=== PATIENT | female | born 1975 | race Two or more races ===

== ENCOUNTER 2025-02-07 17:00 | Emergency (ER) | payer MEDICAID, SELFPAY ==
[2025-02-07 17:22] VITALS: BP 111/71; PULSE 81; RESP 16; TEMP 37.1; O2SAT 96
--- NOTE | 2025-02-07 19:10 | XR_ITS ---
Examination: CT abdomen and pelvis without contrast. Coronal 3-D reconstructions. Sagittal 2-D reconstructions. Date and time of exam:January 30, 2025 2113 hrs. Comparison: 02/09/2012 Indications: Nausea vomiting diarrhea beginning 2 weeks ago CTDI: vol (mGy): 10.1 DLP: (mGycm): 514 Technique: Axial images of the abdomen have been obtained, 3 mm slice thickness Intravenous contrast material has not been administered. Low dose protocols were performed. One or more of the following dose reduction techniques were used; automated exposure control, adjustment of the mA and/or KV according to patient size, use of iterative reconstruction technique. Findings: No focal liver or splenic lesions Absent gallbladder No pancreatic mass 8 mm lower pole right renal calculus No hydronephrosis or ureteral calculi Multiple lymph nodes in the right lower mesentery Normal appendix No bowel obstruction No bladder mass Enlarged fundus of uterus Impression: 8 mm lower pole right renal calculus No hydronephrosis or ureteral calculi Normal appendix Enlarged fundus of uterus, recommend pelvic sonography follow-up
[2025-02-07 20:06] LABS: Collection Type, Urine Clean Catch
[2025-02-07 20:08] LABS: Basophils # (Auto) 0.1 Thou/mm3 (0.0-0.2); Basophils % (Auto) 1 % (0-2.5); Eosinophils # (Auto) 0.2 Thou/mm3 (0.0-0.5); Eosinophils % (Auto) 2 % (0-10); Hematocrit 39.7 % (36.0-46.0); Hemoglobin 13.1 g/dL (12.0-16.0); Immature Granulocytes Auto 0.04 Thou/mm3 (0.00-0.00); Lymphocytes # (Auto) 3.7 Thou/mm3 (1.0-4.8); Lymphocytes % (Auto) 31 % (10-50); Mean Corpuscular HGB Conc 33.0 g/dl (31.0-37.0); Mean Corpuscular Hemoglobin 28.9 pg (25.0-35.0); Mean Corpuscular Volume 88 fL (80-100); Monocytes # (Auto) 0.7 Thou/mm3 (0.0-0.8); Monocytes % (Auto) 5 % (0-12); Neutrophils # (Auto) 7.3 Thou/mm3 (1.8-7.7); Neutrophils % (Auto) 61 % (37-80); Nucleated Red Blood Cell # 0.00 Thou/mm3 (0.00-0.00); Nucleated Red Blood Cell % 0 /100 WBC (0); Platelet Count 340 Thou/mm3 (140-440); RDW Standard Deviation 42.1 fL (36.4-46.3); Red Blood Count 4.53 Miln/mm3 (4.00-5.20); White Blood Count 12.0 Thou/mm3 (3.6-11.0)
[2025-02-07 20:24] LABS: Bacteria,Urine Rare; Bilirubin,Urine Negative (Negative); Blood,Urine 1+ (Negative); Clarity,Urine Clear (Clear/Hazy); Color,Urine Yellow (Lt Yel-Yel); Glucose, Urine Negative (Negative); Ketones,Urine Negative (Negative); Leukocyte Esterase,Urine Positive (Negative); Nitrite,Urine Negative (Negative); PH,Urine 5.5 (5.0-7.0); Protein,Urine Trace (Neg - Trace); RBC,Urine 6 /hpf (0-3); Specific Gravity,Urine 1.027 (1.001-1.035); Squamous Epithelial Cell,Urine 9 /hpf (0-5); Urobilinogen,Urine Negative mg/dL (0.0-1.0); WBC,Urine 12 /hpf (0-5)
[2025-02-07 20:25] LABS: HCG Qualitative,Urine Negative
[2025-02-07 20:35] LABS: Alanine Aminotransferase 12 U/L (10-49); Albumin, Serum 4.6 gm/dL (3.5-5.0); Albumin/Globulin Ratio 1.6 (1.2-2.2); Alkaline Phosphatase 70 U/L (46-116); Anion Gap 6 (7-16); Aspartate Amino Transferase 20 U/L (0-34); BUN/Creatinine Ratio 9 Ratio (12-20); Bilirubin,Total 0.3 mg/dL (0.3-1.2); Blood Urea Nitrogen 9 mg/dL (9-23); Calcium 9.4 mg/dL (8.3-10.6); Calcium (Corrected) 9.4 mg/dL (8.5-10.1); Carbon Dioxide 28.3 mMol/L (20.0-31.0); Chloride 107 mMol/L (98-107); Creatinine (Component) 1.0 mg/dL (0.6-1.3); Estimated Creatinine Clearance 70.7 mL/min (>60); Globulin 2.9 gm/dL (2.3-3.5); Glucose 79 mg/dL (74-106); Osmolality,Calculated 278 (275-295); Potassium 3.9 mMol/L (3.4-5.1); Sodium 141 mMol/L (136-145); Total Protein 7.5 gm/dL (5.7-8.2); eGFR > 60 See Note
[2025-02-07 21:00] LABS: Lipase 33 U/L (12-53)
--- NOTE | 2025-02-07 22:36 | XR_ITS ---
Examination: Pelvic ultrasound, transabdominal, complete Technique: Transabdominal ultrasound of the pelvis performed using grayscale imaging Date and time of exam: July 02, 2024 10:56 PM Indications: Abdominal pain and diarrhea beginning 2 weeks ago Findings: Uterus 9.3 cm Uterine fundal area of fibroid degeneration 4.2 x 4.1 cm Endometrial stripe 0.8 cm Ovaries obscured by bowel gas Impression: Uterine fundal area of fibroid degeneration 4.2 x 4.1 x 3.7 cm
--- NOTE | 2025-02-08 00:18 | PD.EDABDPN ---
ED Abdominal Pain RME/HPI General Chief Complaint: Abdominal Pain Stated complaint: ABD PAIN, N/V/ X 2 WKS Time seen by provider: 02/07/25 18:47 Arrival date/time: 02/07/25 17:00 This is a case of 49-year-old female with history of uterine fibroid came in in the emergency room due to both lower abdominal pain radiating to both flanks for 1 month worsening of the symptoms this patient decided to sought consult here in the emergency room associated symptoms nausea vomiting but no constipation no diarrhea no fever no chills Limitations: no limitations Related Data Previous Rx's ?Medication ?Instructions ?Recorded cephalexin 500 mg capsule 500 mg PO QID #40 caps 02/08/25 hydrocodone 5 mg-acetaminophen 325 1 tab PO Q6H PRN pain #12 tabs 02/08/25 mg tablet ondansetron 4 mg disintegrating 4 mg PO Q8H #20 tabs 02/08/25 tablet tamsulosin 0.4 mg capsule (Flomax) 0.4 mg PO QDAY #7 caps 02/08/25 Allergies Allergy/AdvReac Type Severity Reaction Status Date / Time No Known Allergies Allergy Verified 02/07/25 17:03 Review of Systems Review of Systems Systems Reviewed: All systems reviewed, normal except as documented Constitutional Constitutional: Reports system reviewed and no additional complaints, except as documented and Reports as per HPI ENT Ears, Nose, Mouth, and Throat: Denies dysphagia and Denies odynophagia Cardiovascular Cardiovascular: Reports system reviewed and no additional complaints, except as documented and Reports as per HPI Respiratory Respiratory: Reports system reviewed and no additional complaints, except as documented and Reports as per HPI Gastrointestinal Gastrointestinal: Reports system reviewed and no additional complaints, except as documented, Reports as per HPI, Reports abdominal pain, Denies belching, Denies bloating, Denies change in bowel habits, Denies change in stool character, Denies coffee ground emesis, Denies constipation, Denies cramping, Denies diarrhea, Denies dyspepsia, Denies dysphagia, Denies early satiety, Denies excessive flatus, Denies hematemesis, Denies hematochezia, Denies loose stools, Denies melena, Reports nausea, Denies odynophagia, Denies tenesmus and Reports vomiting Genitourinary Genitourinary: Reports system reviewed and no additional complaints, except as documented, Reports as per HPI, Denies abnormal menses, Denies abnormal vaginal bleeding, Denies amenorrhea, Denies change in libido, Denies difficulty conceiving, Denies difficulty voiding, Denies dysmenorrhea, Denies dyspareunia, Denies dysuria, Denies flank pain, Denies genital lesions, Denies hematuria, Denies hot flashes, Denies light periods, Denies menorrhagia, Denies nipple discharge, Denies urinary frequency, Denies urinary incontinence, Denies urinary hesitancy, Denies urinary urgency, Denies vaginal discharge, Denies vaginal dryness, Denies vaginal odor and Denies vaginal pruritus Musculoskeletal Musculoskeletal: Reports system reviewed and no additional complaints, except as documented and Reports as per HPI Integumentary/Breasts Skin/Breast: Denies nipple discharge Neurologic Neurologic: Reports system reviewed and no additional complaints, except as documented and Reports as per HPI Psychiatric Psychiatric: Denies change in libido Endocrine Endocrine: Denies change in libido Past Medical History Social History SMOKING STATUS: Current every day smoker ED Exam General Limitations: Present no limitations General appearance: Present alert, in no apparent distress and other (Patient is awake alert oriented not in distress nontoxic looking well-hydrated well-nourished) Head Head exam: Present atraumatic, normocephalic and normal inspection Eye Eye exam: Present normal appearance, PERRL and EOMI ENT ENT exam: Present normal exam, normal oropharynx and mucous membranes moist Neck Neck exam: Present normal inspection, full ROM and trachea midline; Absent tenderness, meningismus, lymphadenopathy or thyromegaly Chest Chest inspection: Present normal inspection and symmetric chest wall rise; Absent tenderness Respiratory Respiratory exam: Present normal lung sounds bilaterally; Absent respiratory distress, wheezes, stridor, accessory muscle use or prolonged expiratory phase Cardiovascular Cardiovascular exam: Present regular rate, normal rhythm and normal heart sounds; Absent bradycardia, tachycardia, irregular rhythm, systolic murmur or diastolic murmur Abdominal Exam Abdominal exam: Present soft, tenderness (Mild tenderness on suprapubic area no CVA tenderness bladder is not distended not tender) and normal bowel sounds; Absent distention, guarding, rebound, rigidity, diminished bowel sounds, hyperactive bowel sounds, hypoactive bowel sounds, organomegaly, trauma, psoas sign, obturator sign, Wilson's sign, Rovsing's sign, tenderness at McBurney's Point, ascites or hernia Extremities Exam Extremities exam: Present normal inspection and full ROM Back Exam Back exam: Present normal inspection and full ROM Neurological Exam Neurological exam: Present alert, oriented X3, CN II-XII intact, normal gait and reflexes normal; Absent motor sensory deficit Psychiatric Psychiatric exam: Present normal affect and normal mood Skin Skin exam: Present warm, dry, intact and normal color Course Quality Measures none Orders Category Date Time Status CT abdomen pelvis wo con Stat Exams 02/07/25 19:10 Completed US pelvic complete Stat Exams 02/07/25 22:36 Completed CBC Stat Lab 02/07/25 19:29 Completed Comprehensive Metabolic Panel Stat Lab 02/07/25 19:29 Completed HCG Qualitative,Urine Stat Lab 02/07/25 19:57 Completed Lipase Stat Lab 02/07/25 19:29 Completed Urinalysis Stat Lab 02/07/25 19:57 Completed HYDROcodone*/APAP 5/325 [[place] 5/325] Med 02/08/25 00:11 Discontinued 1 tab PO X1 ONE Ketorolac Inj [Toradol Inj] Med 02/08/25 00:11 Discontinued 30 mg IM X1 ONE Tamsulosin HCl [Flomax] Med 02/08/25 00:11 Once 0.4 mg PO X1 ONE cephALEXin [Keflex] Med 02/08/25 00:11 Discontinued 1,000 mg PO X1 ONE Vital Signs Vital signs: Vital Signs Temperature 98.7 F 02/07/25 17:22 Pulse Rate 81 02/07/25 17:22 Respiratory Rate 16 02/07/25 17:22 Blood Pressure 111/71 02/07/25 17:22 Pulse Oximetry (%) 96 02/07/25 17:22 Oxygen Delivery Method Room Air 02/07/25 17:22 Patient oxygen saturation is 96% in room air normal Abdominal Pain MDM MDM Narrative MDM Narrative:: This is a case of 49-year-old female with history of uterine fibroid came in in the emergency room due to both lower abdominal pain radiating to both flanks for 1 month worsening of the symptoms this patient decided to sought consult here in the emergency room associated symptoms nausea vomiting but no constipation no diarrhea no fever no chills physical examination patient is awake alert oriented not in distress nontoxic looking well-hydrated well-nourished excellent skin turgor abdominal exam noted mild tenderness in suprapubic area no guarding no rebound no rigidity negative psoas negative straight or negative of 16 (no Wilson sign negative CVA tenderness bladder is not distended not tender the rest of the physical examination and neurological exam is normal and unremarkable blood test showed leukocytosis of 12,000 no anemia kidney and liver function is normal no electrolyte imbalance lipase is normal urinalysis suggestive of urinary tract infection CT scan of the abdomen showed nephrolithiasis but no hydronephrosis ultrasound of the pelvic showed uterine fibroid patient was given Toradol [place] here in the emergency room and started with cephalexin for urinary tract infection and Flomax for kidney stone patient will follow-up with PCP in 2 days for reevaluation and to be referred to urologist for kidney stone and 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 Patient verbalized no further complains explained diagnosis and answered patient question. Patient is comfortable with the proposed management plan including the need to follow up with his/her primary care physician and any specialist if applicable Discussed patient for any urgent condition or worsening sx, He/She needed to go to emergency room immediately or call 911. Patient acknowledge the responsibility to follow up as instructed and to monitor her/his symptoms. For any persistence of the symptoms for more than 3-5 days return precaution advised. Discussed the result of the test and was given printed discharge instruction Patient data External records reviewed:: [facility] previous records Clinical information provided by:: patient Social determinants that could affect healthcare access:: none Patient has the following chronic illnesses:: None How is presenting disease/condition affected by chronic disease/condition?: no chronic disease Evaluation data The following diagnostics were reviewed and interpreted by me:: lab results and radiology exam(s) Lab and/or radiology exams considered but not ordered:: Reviewed Interpretation Summary: Reviewed Medications / Prescriptions Medications or Prescriptions considered but not ordered:: Given Medication administrations:: Medication Administration History Tamsulosin HCl (Tamsulosin Hcl 0.4 Mg Capsule) 0.4 mg PO X1 ONE Stop: 02/08/25 00:12 Discontinued Medications Hydrocodone Bitart/Acetaminophen (Hydrocodone/Apap 5/325 Tablet) 1 tab PO X1 ONE Stop: 02/08/25 00:12 Cephalexin HCl (Cephalexin 250 Mg Capsule) 1,000 mg PO X1 ONE Stop: 02/08/25 00:12 Ketorolac Tromethamine (Ketorolac Inj 60 Mg/2 Ml Vial) 30 mg IM X1 ONE Stop: 02/08/25 00:12 Given Consultations Consultation(s) initiated? (list below): No Diagnosis Differential diagnosis abdominal pain: abdominal pain, acute appendicitis, calculus of kidney, constipation and diverticulitis Most likely diagnosis given after review of the tests above:: Nephrolithiasis uterine fibroid urinary tract infection Admission Indicated Admission indicated?: not indicated Explain why admission is indicated or not indicated:: Not indicated Admission Request Was there a request for admission?: No Admission Attestation Admission request attestation: Not indicated Disposition Plan Disposition Plan: Discharge Discharge Attestation Discharge Attestation: The patient and all family members were given an opportunity to ask questions and understood the discharge instructions. Discharge instructions specifically effects, indications for sooner follow up or return to the emergency department, and the expected course of current diagnosis. Patient condition: Stable Discharge Plan Plan Patient Disposition: HOME (Self Care) Patient condition on transfer: Stable Prescriptions/Referrals Prescriptions/Med Rec: New cephalexin 500 mg capsule 500 mg PO QID Qty: 40 0RF hydrocodone-acetaminophen 5-325 mg tablet 1 tab PO Q6H MDD max 4 tabs per day PRN (Reason: pain) Qty: 12 0RF ondansetron 4 mg tablet,disintegrating 4 mg PO Q8H Qty: 20 0RF tamsulosin [Flomax] 0.4 mg capsule 0.4 mg PO QDAY Qty: 7 0RF Referrals: Pedro Krause MD [Primary Care Provider, Family Practice] - In 1 week Problem List Clinical Impression: Abdominal pain, Nephrolithiasis, Fibroid, uterine, Urinary tract infection Patient/Caregiver Discharge Instructions Education Materials: Abdominal Pain, Urinary Tract Infections in Women, Kidney Stones Your Evaluation, ED Uterine Fibroids Additional Instructions: Follow-up with your primary care physician in 2 days for reevaluation and to be referred to urologist for further evaluation and treatment of kidney stone and to be referred to OB security systems sales representative for further evaluation and treatment of uterine fibroid worsening symptoms recurrence persistent or any emergent concern call 911 or go to the nearest emergency room take your medication as directed finish the course of antibiotic increase water intake keep hydrated is advised Print Language: Estonian Stand Alone Forms: Marya Award Info., Patient Portal Info Letter PA/HEAD INSPECTOR AND CENTER MARKER Supervising Physician PA/HEAD INSPECTOR AND CENTER MARKER Supervising Physician: Dr. Quentin Tucker
[2025-02-08] MEDS: KETOROLAC INJ 60 MG/2 ML VIAL 30 MG IM (00:39)
[2025-02-08] MEDS: TAMSULOSIN HCL 0.4 MG CAPSULE PO (00:39)
[2025-02-08] MEDS: HYDROcodone/APAP 5/325 TABLET 1 TAB PO (00:40)
== END 2025-02-08 01:04 | disposition home or self-care (01) ==
PROVIDERS: Nurse Practitioner Family; Emergency Provider Emergency Medicine; PCP Family Medicine
DX: D25.9 Leiomyoma of uterus, unspecified (principal); N39.0 Urinary tract infection, site not specified; N20.0 Calculus of kidney
CPT/HCPCS: 36415; 74176; 76856; 80053; 81001; 81025; 83690; 85025; 96372; 99283; J1885; A9270

== ENCOUNTER → 2025-03-22 | Outpatient (CLI) | payer MEDICAID, SELFPAY ==
--- NOTE | 2025-03-22 14:31 | XR_ITS ---
Examination: Abdomen AP single view Technique: AP portable supine abdomen, single view Exam date and time: March 22, 2025, 1703 hours INDICATIONS: Abdominal pain right flank pain for months. FINDINGS: 7 mm calculus lower pole right kidney No definite ureteral calculi Moderate stool throughout the colon IMPRESSION: 7 mm calculus lower pole right kidney
== END | disposition home or self-care (01) ==
PROVIDERS: Referring Provider Surgery; Visit Provider Surgery
DX: N20.0 Calculus of kidney (principal)
CPT/HCPCS: 74018

== ENCOUNTER 2025-04-23 08:15 | Day surgery (SDC) | payer MEDICAID, SELFPAY ==
[2025-04-20 10:50] VITALS: BMI 27.9
[2025-04-20 12:00] LABS: Basophils # (Auto) 0.1 Thou/mm3 (0.0-0.2); Basophils % (Auto) 1 % (0-2.5); Eosinophils # (Auto) 0.2 Thou/mm3 (0.0-0.5); Eosinophils % (Auto) 3 % (0-10); Hematocrit 40.3 % (36.0-46.0); Hemoglobin 13.5 g/dL (12.0-16.0); Immature Granulocytes Auto 0.02 Thou/mm3 (0.00-0.00); Lymphocytes # (Auto) 2.6 Thou/mm3 (1.0-4.8); Lymphocytes % (Auto) 32 % (10-50); Mean Corpuscular HGB Conc 33.5 g/dl (31.0-37.0); Mean Corpuscular Hemoglobin 29.1 pg (25.0-35.0); Mean Corpuscular Volume 87 fL (80-100); Monocytes # (Auto) 0.5 Thou/mm3 (0.0-0.8); Monocytes % (Auto) 7 % (0-12); Neutrophils # (Auto) 4.6 Thou/mm3 (1.8-7.7); Neutrophils % (Auto) 57 % (37-80); Nucleated Red Blood Cell # 0.00 Thou/mm3 (0.00-0.00); Nucleated Red Blood Cell % 0 /100 WBC (0); Platelet Count 310 Thou/mm3 (140-440); RDW Standard Deviation 40.4 fL (36.4-46.3); Red Blood Count 4.64 Miln/mm3 (4.00-5.20); White Blood Count 8.1 Thou/mm3 (3.6-11.0)
[2025-04-20 12:26] LABS: Anion Gap 9 (7-16); BUN/Creatinine Ratio 11 Ratio (12-20); Blood Urea Nitrogen 11 mg/dL (9-23); Calcium 9.4 mg/dL (8.3-10.6); Carbon Dioxide 27.5 mMol/L (20.0-31.0); Chloride 107 mMol/L (98-107); Creatinine (Component) 1.0 mg/dL (0.6-1.3); Estimated Creatinine Clearance 68.7 mL/min (>60); Glucose 111 mg/dL (74-106); Osmolality,Calculated 285 (275-295); Potassium 4.1 mMol/L (3.4-5.1); Sodium 143 mMol/L (136-145); eGFR > 60 See Note
--- NOTE | 2025-04-22 13:26 | ESHP_ITS ---
RE: RODRIGO JACINTO : 1975 DATE OF ADMISSION: 04/22/2025 HISTORY OF PRESENT ILLNESS: A 50 year old female with a right renal stone. Scheduled for ESWL for the right renal stone. She has a 8.8 mm stone on the right kidney. Patient had pain. She was to the emergency room before. PREVIOUS SURGERY: Cholecystectomy, 3 C-sections. Patient has 6 children. PAST MEDICAL HISTORY: No history of diabetes mellitus. No history of hypertension. ALLERGIES: NONE KNOWN. MEDICATIONS: None. PHYSICAL EXAMINATION: Clinical examination reveals: HEENT: Normal. NECK: Supple. LUNGS: Clear. HEART: Heart sounds are normal. ABDOMEN: Soft without any organomegaly. No guarding. No rigidity. EXTREMITIES: Normal. IMPRESSION: Right renal stone 8 mm in size. PLAN: Right ESWL. Planned procedure, risks and complications have been discussed with the patient. Patient has understood them and agreed to proceed. DT: 12:57:38 TT: 13:25:00 Ref: [id number] - TID: [id number]
[2025-04-23] VITALS (8 sets, daily range): BP systolic 109–150; BP diastolic 49–87; PULSE 57–74; RESP 12–18; TEMP 36.7–36.8; O2SAT 98–100; BMI 28.2
--- NOTE | 2025-04-23 06:00 | XR_ITS ---
Examination: Abdomen AP single view Technique: AP portable supine abdomen, single view Exam date and time: April 23, 2025, 0937 hours INDICATIONS: Right flank pain months, kidney stones FINDINGS: Suspicious for 7 mm right renal calculus Abundant stool in the colon overlies the kidneys No free air IMPRESSION: Suspicious for 7 mm right renal calculus
--- NOTE | 2025-04-23 09:24 | SUR.PREOP ---
Patient expressed gratitude for prayer before their procedure.
[2025-04-23 09:29] LABS: Collection Type, Urine Clean Catch
[2025-04-23 09:44] LABS: Bilirubin,Urine Negative (Negative); Blood,Urine 2+ (Negative); Color,Urine Yellow (Lt Yel-Yel); Glucose, Urine Negative (Negative); Ketones,Urine Negative (Negative); Leukocyte Esterase,Urine Negative (Negative); Nitrite,Urine Negative (Negative); PH,Urine 5.5 (5.0-7.0); Protein,Urine Trace (Neg - Trace); RBC,Urine 19 /hpf (0-3); Specific Gravity,Urine 1.029 (1.001-1.035); Squamous Epithelial Cell,Urine 8 /hpf (0-5); Urobilinogen,Urine Negative mg/dL (0.0-1.0); WBC,Urine 4 /hpf (0-5)
[2025-04-23 10:06] LABS: Clarity,Urine Hazy (Clear/Hazy)
--- NOTE | 2025-04-23 10:39 | EKG_ITS ---
[facility] Test Date: 2025-04-23 Pat Name: RODRIGO JACINTO Department: Room: - Gender: Female Inflated Pad Buffer: KARLO : 1975 Requested By: Edson Rachel Order Number: [id number] Reading MD: Edson Rachel Measurements Intervals [place] Rate: 56 P: 54 TN: 143 QRS: 19 QRSD: 82 T: 32 QT: 431 QTc: 416 Interpretive Statements SINUS BRADYCARDIA POSSIBLE RIGHT VENTRICULAR CONDUCTION DELAY No previous ECG available for comparison /[id number]/[email or web address]/[id number].pdf
--- NOTE | 2025-04-23 12:20 | SUR.PHASEI ---
1206: Pt received in [facility] via gurney. Pt obtunded. Resp even, unlabored. VS stable. 1221: Pt resting with no complaints voiced. Resp even, unlabored. VS stable.
--- NOTE | 2025-04-23 13:02 | SUR.PHASEII ---
1255: Pt more awake, alert. VS stable. No c/o pain. Pt sittiing up tolerating po fluids with no difficulty swallowing and no n/v.
--- NOTE | 2025-04-23 13:49 | SUR.PHASEII ---
1323: Pt fully awake, oriented x3. VS stable. Pt states she has very little pain with movement which is tolerable. Pt dressed and assisted to transport chair. Ambulation steady. Pt and partner stated understanding of discharge instructions. Pt also instructed to mushroom picker her prescrition at [facility]. Pt discharged from [facility] in stable condition.
--- NOTE | 2025-04-23 20:39 | ESOP_ITS ---
RE: RODRIGO JACINTO : 1975 DATE OF OPERATION: 04/23/2025 PREOPERATIVE DIAGNOSIS: Right renal stone. POSTOPERATIVE DIAGNOSIS: Right renal stone. PROCEDURE PERFORMED: ESWL for right renal stone. ANESTHESIA: General. INDICATION: Patient is a 50-year-old female with a right-sided renal stone, 8 mm in size. She has been having pain. She is now scheduled to have ESWL for the right renal stone. Planned procedure, risks, and complications have been discussed with the patient. Patient understood them and agreed to proceed. DESCRIPTION OF PROCEDURE: After the patient was brought to the operating table, under general anesthesia, she was positioned on Dornier Delta 3 lithotripsy machine. Right renal stone was visualized and then it was treated with ESWL for the right kidney stone. 2500 shocks were given to power level 7-8. Patient tolerated the entire procedure well and left the room in good condition. DT: 12:01:51 TT: 20:37:00 Ref: [id number] - TID: [id number]
== END 2025-04-23 13:23 | disposition home or self-care (01) ==
PROVIDERS: PCP Family Medicine; Referring Provider Surgery; Visit Provider Surgery
PROC: (CPT 50590; principal; 2025-04-23 11:45)
DX: N20.0 Calculus of kidney (principal); Z01.810 Encounter for preprocedural cardiovascular examination
CPT/HCPCS: 50590; 36415; 74018; 80048; 81001; 85025; 87086; 93005; A4649; J0131; J0694; J1100; J1885; J2250; J2405; J2704; J3010; J3490